=== PATIENT | female | born 1940 | race Caucasian/White ===

== ENCOUNTER 2016-10-23 05:15 | Emergency (ER) | payer OTHER ==
[~2016-10-23] VITALS: Ht 162.6 cm; Wt 79.5 kg
[~2016-10-23 05:15] MED LIST: ATEN-175 PO; ATV5 PO; FRS/40 PO; POTA-335 PO; SERT-234 PO
[2016-10-23 05:22] VITALS: TEMP 36.5; Ht 162.6 cm; Wt 79.5 kg
[2016-10-23] MEDS ORDERED: PHENAZOPYRIDINE HCL 200 MG TAB PO STA (05:35)
--- NOTE | 2016-10-23 05:37 | EMERGENCY ROOM VISIT NOTE ---
History Report prepared by Marysol: June Aguilar Under the Supervision of: Dr. Franny Perez D.O. First contact with patient: 05:27 Chief Complaint: URINARY SYMPTOMS Stated Complaint: BLADDER PAIN Nursing Triage Summary: pt c/o bladder pain that started yesterday then this morning at 0230 it woke her up. frequency and blood now History of Present Illness The patient is a 76 year old female who presents to the Emergency Room with complaints of persistent lower abdominal pain that began around 0230 this morning. She currently rates her discomfort as an 8/10 in severity. The patient states that she has had bladder infections in the past and notes that her symptoms today feel similar to previous bladder infections. She states that she initially noticed symptoms yesterday, but states that it went away. The patient states that this morning at 0230 she noticed severe pain, describing it as a pressure. She additionally associates hematuria and urinary frequency with her symptoms today. The patient denies any fever, nausea, or vomiting. She states that her last bladder infection was a few years ago. The patient denies any history of diabetes. Source of History: patient Onset: 0230 this morning Position: abdomen (lower) Symptom Intensity: 8/10 Quality: pressure Timing: other (persistent) Associated Symptoms: + urinary symptoms (hematuria and frequency), No fevers , No nausea, No vomiting Review of Systems See HPI for pertinent positives & negatives. A total of 10 systems reviewed and were otherwise negative. Past Medical & Surgical Medical Problems: (1) Hx-Hodgkin's Disease (2) Hyperlipidemia Nec/Nos (3) Hypertension Nos (4) Pure Hypercholesterolem (5) Urin Tract Infection Nos Family History FHx: cancer Social History Smoking Status: Never Smoker Alcohol Use: none Drug Use: none Marital Status: Occupation Status: retired Current/Historical Medications Scheduled Atenolol (Tenormin), 100 MG PO DAILY Furosemide (Lasix), 40 MG PO BID Lorazepam (Ativan *), 0.5 MG PO TID Phenazopyridine Hcl (Pyridium), 1 TAB PO TID Potassium Chloride (Micro-K Ext Rel), 20 MEQ PO BID Sertraline (Zoloft), 100 MG PO DAILY Sulfamethoxazole-Trimethoprim (Bactrim Ds 800MG/160MG), 1 TAB PO BID Allergies Coded Allergies: Amoxicillin (Verified Allergy, Intermediate, HIVES, 10/23/16) Codeine (Unverified Allergy, Intermediate, HIVES, 10/23/16) Iodine (Unverified Allergy, Intermediate, HIVES, 10/23/16) NSAIDs (Verified Adverse Reaction, Severe, TOLD NOT TO TAKE DUE TO HBP, ) Uncoded Allergies: IODINATEDGLYCER (Allergy, Intermediate, HIVES, 11/14/09) IV CONTRAST IODINE FOR X-RAY (Allergy, Intermediate, RAPID HEART RATE, 04/02) Physical Exam Vital Signs Date Time Temp Pulse Resp B/P Pulse Ox O2 Delivery O2 Flow Rate FiO2 10/23/16 06:49 69 18 155/84 98 Room Air 10/23/16 05:22 36.5 70 18 166/97 95 Room Air Physical Exam HEENT: Head - normocephalic and atraumatic Pupils are equal, round, and reactive to light. Extraocular eye muscles are intact, and sclera are anicteric. Nose - moist nasal mucosa without discharge. Mouth - moist buccal mucosa. Oropharynx is nonerythematous and there is no tonsillar exudate or edema noted. Neck: Supple; no JVD, nuchal rigidity, cervical lymphadenopathy. Heart: Regular rate and rhythm. There is a normal S1 and S2 with no murmurs, clicks, or gallops appreciated. Lungs: Clear to auscultation bilaterally with no wheezes, rales, or rhonchi. Abdomen: Reproducible pain in the suprapubic region. Soft, nondistended, with good bowel sounds. There are no palpable pulsatile masses or hepatosplenomegaly. There is no guarding, rigidity, or rebound noted. Extremities: No evidence of cyanosis, clubbing, or edema. There are easily palpable peripheral pulses. Skin: warm and dry with good turgor and no rashes. Medical Decision & Procedures Laboratory Results Test 10/23/16 05:40 Urine Color YELLOW Urine Appearance CLOUDY (CLEAR) Urine pH 6.0 (4.5-7.5) Urine Specific [place] 1.025 (1.000-1.030) Urine Protein 2+ (NEG) Urine Glucose (UA) NEG (NEG) Urine Ketones NEG (NEG) Urine Occult Blood 3+ (NEG) Urine Nitrite NEG (NEG) Urine Bilirubin NEG (NEG) Urine Urobilinogen NEG (NEG) Urine Leukocyte Esterase MODERATE (NEG) Urine RBC >30 /hpf (0-4) Urine WBC >30 /hpf (0-5) Urine Epithelial Cells 10-20 /lpf (0-5) Urine Renal Cells 5-10 /lpf (FEW) Urine Bacteria 1+ (NEG) Laboratory results per my review. Medications Administered Medications (Trade) Dose Ordered Sig/Damián Route Start Time Stop Time Status Last Admin Dose Admin Phenazopyridine HCl (Pyridium Tab) 200 mg NOW STAT PO 10/23/16 05:35 10/23/16 05:37 DC 10/23/16 05:48 200 MG Ceftriaxone Sodium (Rocephin Im) 997.5 mg STK-MED ONCE IM 10/23/16 06:27 10/23/16 06:29 DC 10/23/16 06:44 1,000 MG Procedure The patient was treated with Pyridium Tab 200 mg PO, Rocephin Inj 1 gm IV. ED Course 0532: Past medical records reviewed. The patient was evaluated in room B2. A complete history and physical exam was performed. A urine specimen was obtained. 0535: Ordered Pyridium Tab 200 mg PO. 0613: Ordered Rocephin Inj 1 gm IM. 0615: I reevaluated the patient and she is feeling better. I discussed the exam findings with her and I discussed the treatment plan. She verbalized complete understanding and agreement. She is ready to go home. Medical Decision The patient is a 76 year old female who presents to the ED with lower abdominal pain. Differential diagnosis includes hemorrhagic cystitis, kidney stone, UTI. Urine: Yellow cloudy urine 2+ protein, 3+ blood, moderate leukocyte esterase, Greater than 30 rbc, and greater than 30 wbc, 1+ bacteria This is a 76-year-old female patient presents to the emergency department with urinary symptoms and hematuria. The patient has a history of urinary tract infections. She was treated with Pyridium which did help with her symptoms here. She was given a gram of Rocephin here and will be treated with oral Bactrim. Initially , I had prescribed Cipro as the patient had been prescribed this in the past. However, the patient told me that she had to be taken off of the Cipro for some reason. The patient was told to return to the emergency department if she had any worsening symptoms. Impression Primary Impression: Hemorrhagic cystitis Scribe Attestation The scribe's documentation has been prepared under my direction and personally reviewed by me in its entirety. I confirm that the note above accurately reflects all work, treatment, procedures, and medical decision making performed by me. Departure Information Dispostion Home / Self-Care Prescriptions Sulfamethoxazole-Trimethoprim (Bactrim Ds 800MG/160MG) 1 Tab Tab 1 TAB PO BID, #20 TAB Prov: Franny Perez D.O. 10/23/16 Phenazopyridine Hcl (PYRIDIUM) 200 Mg Tab 1 TAB PO TID for 2 Days, #6 TAB Prov: Franny Perez D.O. 10/23/16 Referrals Ramiro Garcia M.D. (PCP) Forms HOME CARE DOCUMENTATION FORM, IMPORTANT VISIT INFORMATION Patient Instructions My [facility], UTI Additional Instructions Rest. Take plenty of clear liquids Pyridium - 1 tab. every 8 hours for next 2 days Bactrim - 1 tab. every 12 hours
[2016-10-23 05:50] LABS: MANUAL MICROSCOPIC REQUIRED? YES; URINE APPEARANCE CLOUDY (CLEAR); URINE COLOR YELLOW; URINE NITRITE NEG (NEG); URINE SPECIFIC GRAVITY 1.025 (1.000-1.030); UROBILINOGEN NEG (NEG)
[2016-10-23 05:56] LABS: REVIEW REQ? NO
[2016-10-23 05:57] LABS: URINE BILIRUBIN NEG (NEG)
[2016-10-23 05:59] LABS: URINE RBC >30 /hpf (0-4); URINE WBC >30 /hpf (0-5)
[2016-10-23 06:00] LABS: URINE BACTERIA 1+ (NEG)
[2016-10-23] MEDS ORDERED: CEFTRIAXONE SOD INJ 1 GM ADDVIAL IM STA (06:13)
[2016-10-23] MEDS ORDERED: CEFTRIAXONE SOD 350MG/ML 1 GM VIAL IM ONE (06:27)
[2016-10-23] MEDS ORDERED: PHEN-775 PO (06:39)
[2016-10-23] MEDS ORDERED: CIPR1TAB10 PO (06:41)
[2016-10-23] MEDS ORDERED: SULF800T23 PO (06:44)
[2016-10-23 06:49] VITALS: BP 155/84; PULSE 69; O2SAT 98
== END 2016-10-23 07:10 | disposition home or self-care (01) ==
LOC: C.EDB 05:16
DX: N30.91 Cystitis, unspecified with hematuria (principal); E78.00 Pure hypercholesterolemia, unspecified; I10 Essential (primary) hypertension; Z85.71 Personal history of Hodgkin lymphoma

== ENCOUNTER → 2017-02-14 | Outpatient (CLI) | payer OTHER | END | disposition home or self-care (01) | LOC: C.LABSPEC 12:23 | PROVIDERS: ATTEND Internal Medicine | DX: N39.0 Urinary tract infection, site not specified (principal) ==

== ENCOUNTER 2017-10-27 10:36 | Emergency (ER) | payer OTHER ==
[~2017-10-27] VITALS: Ht 162.6 cm; Wt 80.7 kg
[2017-10-27 10:46] VITALS: Ht 162.6 cm; Wt 80.7 kg
[2017-10-27 10:50] VITALS: O2SAT 99
[2017-10-27] MEDS ORDERED: ACETAMINOPHEN 500 MG TAB PO STA (11:32)
[2017-10-27] MEDS ORDERED: SODIUM CHLORIDE 0.9% 1000ML 1,000 ML IV STA (11:32)
[2017-10-27] MEDS ORDERED: ALBUT/IPRATROP 3MG/0.5MG NEB 3 ML VIAL INH STA (11:32)
--- NOTE | 2017-10-27 11:40 | EMERGENCY ROOM VISIT NOTE ---
History Report prepared by Marysol: Vincent Soni Under the Supervision of: Dr. Real Elizabeth M.D. First contact with patient: 11:27 Chief Complaint: COUGH Stated Complaint: COUGH Nursing Triage Summary: c/o non productive cough and increased weakness since tuesday. History of Present Illness The patient is a 77 year old female who presents to the Emergency Room with complaints of a persistent cough for the past four days. The patient states that her cough started out productive, though now it is a dry cough. She additionally states that she is weak, tired, she has no appetite, and she has a sore throat. The patient's family notes that the patient had a fever the other day. She denies any vomiting, diarrhea, congestion, and any history of COPD, emphysema, asthma, and heart problems. She has been around her grandson who has also been sick recently. The patient states that she has not gotten a flu shot this year. Source of History: patient Onset: four days ago Position: other (global) Quality: other (cough) Timing: other (persistent) Associated Symptoms: + fevers, + sorethroat, + weakness, No vomiting, No diarrhea Note: Associated symptoms: Lack of appetite. Review of Systems See HPI for pertinent positives & negatives. A total of 10 systems reviewed and were otherwise negative. Past Medical & Surgical Medical Problems: (1) Hx-Hodgkin's Disease (2) Hyperlipidemia Nec/Nos (3) Hypertension Nos (4) Pure Hypercholesterolem (5) Urin Tract Infection Nos Family History FHx: cancer Social History Smoking Status: Never Smoker Alcohol Use: none Drug Use: none Marital Status: Occupation Status: retired Current/Historical Medications Scheduled Albuterol Hfa (Ventolin Hfa), 3 PUFFS INH Q6H Atenolol (Tenormin), 100 MG PO DAILY Azithromycin (Zithromax Z-Shaan), 0 PO UD Furosemide (Lasix), 40 MG PO BID Lorazepam (Ativan), 0.5 MG PO TID Potassium Ext Rel (Klor-Con), 20 MEQ PO DAILY Allergies Coded Allergies: Amoxicillin (Verified Allergy, Intermediate, HIVES, 10/27/17) Codeine (Unverified Allergy, Intermediate, HIVES, 10/27/17) Iodine (Unverified Allergy, Intermediate, HIVES, 10/27/17) NSAIDs (Verified Adverse Reaction, Severe, TOLD NOT TO TAKE DUE TO HBP, ) Uncoded Allergies: IODINATEDGLYCER (Allergy, Intermediate, HIVES, 11/14/09) IV CONTRAST IODINE FOR X-RAY (Allergy, Intermediate, RAPID HEART RATE, 04/02) Physical Exam Vital Signs Date Time Temp Pulse Resp B/P (MAP) Pulse Ox O2 Delivery O2 Flow Rate FiO2 10/27/17 14:33 64 19 105/46 92 10/27/17 13:19 72 10/27/17 12:31 36.6 73 19 121/63 100 Room Air 2.0 10/27/17 12:03 66 20 121/63 100 Room Air 10/27/17 10:50 99 Nasal Cannula 2.0 10/27/17 10:47 67 10/27/17 10:46 36.6 67 22 121/63 100 Nasal Cannula 2.0 10/27/17 10:46 96 Nasal Cannula 2.0 Physical Exam GENERAL: Patient is in no acute distress. HEENT: No acute trauma, normocephalic atraumatic, mild throat erythema, mucous membranes moist, no nasal congestion, no scleral icterus. NECK: No stridor, no adenopathy, no meningismus, trachea is midline. LUNGS: Scattered wheezes. Breath sounds are equal. No respiratory distress. Dry cough noted. HEART: Without murmurs gallops or rubs, regular rate and rhythm. ABDOMEN: Soft, nontender, bowel sounds positive, no hernias, no peritonitis. EXTREMITIES: No cyanosis or edema, full range of motion of all the joints without pain or difficulty, no signs for acute trauma. NEUROLOGIC: Oriented x 3, no acute motor or sensory deficits, no focal weakness. SKIN: No rash, no jaundice, no diaphoresis. Medical Decision & Procedures ER Provider Diagnostic Interpretation: Radiology results as stated below per my review and radiologist interpretation: CHEST ONE VIEW PORTABLE HISTORY: Evaluate Fever/Sepsis COMPARISON: Chest 12/14/2013. FINDINGS: A calcified granuloma within the base of the right lower lobe. Mild diffuse interstitial thickening, unchanged. This is likely chronic. No new focal lung consolidations to suggest pneumonia. No evidence for pulmonary edema. The heart remains mildly enlarged. Right paratracheal soft tissue prominence is also stable. IMPRESSION: Stable cardiomegaly and chronic interstitial thickening. No new focal lung consolidations. Electronically signed by: Baldo Cowan M.D. 10/27/2017 1:22 PM Dictated Date/Time: 10/27/2017 1:19 PM Laboratory Results 10/27/17 11:50 Red Blood Count 4.14, Mean Corpuscular Volume 88.6, Mean Corpuscular Hemoglobin 30.9, Mean Corpuscular Hemoglobin Concent 34.9, Mean Platelet Volume 10.3, Neutrophils (%) (Auto) 76.9, Lymphocytes (%) (Auto) 11.2, Monocytes (%) (Auto) 11.2, Eosinophils (%) (Auto) 0.0, Basophils (%) (Auto) 0.3, Neutrophils # (Auto ) 9.77, Lymphocytes # (Auto) 1.42, Monocytes # (Auto) 1.42, Eosinophils # (Auto ) 0.00, Basophils # (Auto) 0.04 10/27/17 11:50 Test 10/27/17 11:50 10/27/17 11:52 White Blood Count 12.70 K/uL (4.8-10.8) Red Blood Count 4.14 M/uL (4.2-5.4) Hemoglobin 12.8 g/dL (12.0-16.0) Hematocrit 36.7 % (37-47) Mean Corpuscular Volume 88.6 fL (80-100) Mean Corpuscular Hemoglobin 30.9 pg (25-34) Mean Corpuscular Hemoglobin Concent 34.9 g/dl (32-36) Platelet Count 149 K/uL (130-400) Mean Platelet Volume 10.3 fL (7.4-10.4) Neutrophils (%) (Auto) 76.9 % Lymphocytes (%) (Auto) 11.2 % Monocytes (%) (Auto) 11.2 % Eosinophils (%) (Auto) 0.0 % Basophils (%) (Auto) 0.3 % Neutrophils # (Auto) 9.77 K/uL (1.4-6.5) Lymphocytes # (Auto) 1.42 K/uL (1.2-3.4) Monocytes # (Auto) 1.42 K/uL (0.11-0.59) Eosinophils # (Auto) 0.00 K/uL (0-0.5) Basophils # (Auto) 0.04 K/uL (0-0.2) RDW Standard Deviation 45.7 fL (36.4-46.3) RDW Coefficient of Variation 14.0 % (11.5-14.5) Immature Granulocyte % (Auto) 0.4 % Immature Granulocyte # (Auto) 0.05 K/uL (0.00-0.02) Anion Gap 10.0 mmol/L (3-11) Est Creatinine Clear Calc Drug Dose 37.8 ml/min Estimated GFR () 47.8 Estimated GFR (Non- 41.3 BUN/Creatinine Ratio 15.2 (10-20) Lactic Acid Level 1.7 mmol/L (0.4-2.0) Calcium Level 8.4 mg/dl (8.5-10.1) Magnesium Level 2.3 mg/dl (1.8-2.4) Total Bilirubin 1.8 mg/dl (0.2-1) Aspartate Amino Transf (AST/SGOT) 39 U/L (15-37) Alanine Aminotransferase (ALT/SGPT) 38 U/L (12-78) Alkaline Phosphatase 88 U/L (45-117) Total Protein 7.3 gm/dl (6.4-8.2) Albumin 3.4 gm/dl (3.4-5.0) Globulin 3.9 gm/dl (2.5-4.0) Albumin/Globulin Ratio 0.9 (0.9-2) Influenza Type A Antigen Neg for Influ A (NEG) Influenza Type B Antigen Neg for Influ B (NEG) Laboratory results reviewed by me. Medications Administered Medications (Trade) Dose Ordered Sig/Damián Route Start Time Stop Time Status Last Admin Dose Admin Acetaminophen (Tylenol Tab) 1,000 mg NOW STAT PO 10/27/17 11:32 10/27/17 11:37 DC 10/27/17 11:49 1,000 MG Sodium Chloride 1,000 ml @ 999 mls/hr Q1H1M STAT IV 10/27/17 11:32 10/27/17 12:32 DC 10/27/17 11:48 999 MLS/HR Albuterol/ Ipratropium (Duoneb) 3 ml NOW STAT INH 10/27/17 11:32 10/27/17 11:37 DC 10/27/17 11:48 3 ML Azithromycin (Zithromax Tab) 500 mg NOW STAT PO 10/27/17 13:55 10/27/17 13:57 DC 10/27/17 14:03 500 MG Albuterol (Ventolin Hfa Inhaler) 2 puffs NOW ONCE INH 10/27/17 14:00 10/27/17 14:01 DC 10/27/17 14:04 2 PUFFS ECG Indication: SOB/dyspnea, other (cough) Rate (beats per minute): 63 Rhythm: sinus rhythm Findings: 1st degree AV block, no ectopy, other (Non-specific T wave changes in the anterior and lateral leads) ED Course 1127: The patient was evaluated in room C7. A complete history and physical exam was performed. 1132: DuoNeb 3ml INH, Sodium Chloride 1000 ml @ 999 mls/hr IV, Tylenol Tab 1000mg PO 1342: Reevaluated the patient. Discussed results and discharge instructions: She verbalized understanding and agreement. The patient is ready for discharge. 1355: Azithromycin 500mg PO 1400: Albuterol 2 puffs INH Medical Decision Differential diagnoses considered include influenza, bronchitis, pneumonia, dehydration, electrolyte imbalance, anemia, and sepsis.. There is a mild leukocytosis, this could be consistent with infection or the stress of her situation. No concerning anemia. No significant electrolyte abnormality or kidney failure. There were a few very subtle liver enzyme elevations. Lactic acid level is not elevated making sepsis less likely. Blood cultures are pending. Influenza testing was negative. Chest film does not show pneumonia or CHF. EKG shows a sinus rhythm, no acute ischemic change, some nonspecific findings were seen. On exam, the patient was not hypoxic or toxic. She was not febrile. The patient was given IV saline, she received oral Tylenol and oral Zithromax. She received a DuoNeb and was given albuterol via MDI. I had a talk with the family and the patient. They do feel stable for discharge. The patient will follow with her doctor and has agreed to return here if worsening. At this point, the patient does appear to have a flulike illness/viral illness. Given the leukocytosis, given her age and past history. I do think antibiotics would be indicated for the possibility of bacterial superinfection. She is being discharged on Zithromax, albuterol, rest and hydration. Medication Reconcilliation Current Medication List: was personally reviewed by me Blood Pressure Screening Patient's blood pressure: Normal blood pressure Impression Primary Impression: Acute bronchitis Additional Impression: Cough Scribe Attestation The scribe's documentation has been prepared under my direction and personally reviewed by me in its entirety. I confirm that the note above accurately reflects all work, treatment, procedures, and medical decision making performed by me. Departure Information Dispostion Home / Self-Care Prescriptions Albuterol Hfa (VENTOLIN HFA) 200 Puffs/14726 Mcg Aers 3 PUFFS INH Q6H, #1 INHALER Prov: Real Elizabeth M.D. 10/27/17 Azithromycin (ZITHROMAX Z-SHAAN) 250 Mg Tab 0 PO UD, #1 PKT Prov: Real Elizabeth M.D. 10/27/17 Referrals Ramiro Garcia M.D. (PCP) Forms HOME CARE DOCUMENTATION FORM, IMPORTANT VISIT INFORMATION Patient Instructions My [facility] Additional Instructions zpac as directed fluids rest eat more frequently with smaller meals as discussed albuterol 3 puffs every 6 hours tylenol for pain and fever and aches see patricia zepeda for a recheck return for worsening symptoms as we discussed Problem Qualifiers
[2017-10-27] MEDS ORDERED: POTA20TA16 PO (12:14)
[2017-10-27] MEDS ORDERED: LORA-741 PO (12:14)
[2017-10-27 12:18] LABS: BASO % 0.3 %; BASO ABS # 0.04 K/uL (0-0.2); HEMATOCRIT 36.7 % (37-47); HEMOGLOBIN 12.8 g/dL (12.0-16.0); IG# 0.05 K/uL (0.00-0.02); LYMPH % 11.2 %; LYMPH ABS # 1.42 K/uL (1.2-3.4); MEAN CELL VOLUME 88.6 fL (80-100); MEAN CORPUSCULAR HEMOGLOBIN 30.9 pg (25-34); MEAN CORPUSCULAR HGB CONC 34.9 g/dl (32-36); MEAN PLATELET VOLUME 10.3 fL (7.4-10.4); MONO % 11.2 %; MONO ABS # 1.42 K/uL (0.11-0.59); NEUT % 76.9 %; NEUT ABS # 9.77 K/uL (1.4-6.5); PLATELET COUNT 149 K/uL (130-400); RED CELL DISTRIBUTION WIDTH SD 45.7 fL (36.4-46.3)
[2017-10-27 12:31] VITALS: TEMP 36.6
[2017-10-27 12:37] LABS: ALBUMIN 3.4 gm/dl (3.4-5.0); CALCIUM 8.4 mg/dl (8.5-10.1); CREATININE 1.24 mg/dl (0.60-1.20); POTASSIUM 3.1 mmol/L (3.5-5.1)
[2017-10-27 12:39] LABS: TOTAL PROTEIN 7.3 gm/dl (6.4-8.2)
[2017-10-27 12:47] LABS: INFLUENZA B ANTIGEN Neg for Influ B (NEG)
--- NOTE | 2017-10-27 13:23 | DIAGNOSTIC IMAGING REPORT ---
CHEST ONE VIEW PORTABLE HISTORY: Evaluate Fever/Sepsis COMPARISON: Chest 12/14/2013. FINDINGS: A calcified granuloma within the base of the right lower lobe. Mild diffuse interstitial thickening, unchanged. This is likely chronic. No new focal lung consolidations to suggest pneumonia. No evidence for pulmonary edema. The heart remains mildly enlarged. Right paratracheal soft tissue prominence is also stable. IMPRESSION: Stable cardiomegaly and chronic interstitial thickening. No new focal lung consolidations. Electronically signed by: Baldo Cowan M.D. 10/27/2017 1:22 PM Dictated Date/Time: 10/27/2017 1:19 PM
[2017-10-27] MEDS ORDERED: AZITHROMYCIN 250 MG TAB PO STA (13:55)
[2017-10-27] MEDS ORDERED: VNTHFA/IN INH (13:59)
[2017-10-27] MEDS ORDERED: AZITTAB PO (13:59)
[2017-10-27] MEDS ORDERED: ALBUTEROL HFA 8 GM INHALER INH ONE (14:00)
[2017-10-27 14:33] VITALS: BP 105/46; PULSE 64; O2SAT 92
== END 2017-10-27 14:34 | disposition home or self-care (01) ==
LOC: EDBD 10:36 → C.EDC 10:37
DX: J20.9 Acute bronchitis, unspecified (principal); I10 Essential (primary) hypertension; E78.5 Hyperlipidemia, unspecified; Z80.9 Family history of malignant neoplasm, unspecified

== ENCOUNTER 2017-11-16 21:29 | Emergency (ER) | payer OTHER ==
[~2017-11-16 21:29] MED LIST changes: -ATV5 PO; +LORA-741 PO; -POTA-335 PO; +POTA20TA16 PO; -SERT-234 PO; +VNTHFA/IN INH
--- NOTE | 2017-11-17 01:01 | EMERGENCY ROOM VISIT NOTE ---
History Report prepared by Marysol: Vincent Soni Under the Supervision of: Dr. Coleman Hernandez D.O. First contact with patient: 21:35 Chief Complaint: CARDIAC ARREST Stated Complaint: CARDIAC ARREST History of Present Illness The patient is a 77 year old female who presents to the Emergency Room with complaints of persistent cardiac arrest first found around 2029 tonight. Per the EMS, the patient was last known well at 1730 by her family before they went out of the house, and then they found her on the floor around 2029 when they came back. The patient was in the ED 2 weeks ago with bronchitis, and she does not have any cardiac history. The patient was given 5 rounds of epinephrin prior to arrival, and the last one was about 5 minutes ago. History was limited secondary to cardiac arrest. Source of History: EMS History Limited By: cardiac arrest Onset: 2029 Position: other (heart) Quality: other (cardiac arrest) Timing: other (persistent) Review of Systems See HPI for pertinent positives & negatives. Unable to obtain complete ROS secondary to patient being unresponsive Past Medical & Surgical Medical Problems: (1) Hx-Hodgkin's Disease (2) Hyperlipidemia Nec/Nos (3) Hypertension Nos (4) Pure Hypercholesterolem (5) Urin Tract Infection Nos Family History FHx: cancer Social History Smoking Status: Never Smoker Alcohol Use: none Drug Use: none Marital Status: Occupation Status: retired Current/Historical Medications Scheduled Albuterol Hfa (Ventolin Hfa), 3 PUFFS INH Q6H Atenolol (Tenormin), 100 MG PO DAILY Furosemide (Lasix), 40 MG PO BID Lorazepam (Ativan), 0.5 MG PO TID Potassium Ext Rel (Klor-Con), 20 MEQ PO DAILY Allergies Coded Allergies: Amoxicillin (Verified Allergy, Intermediate, HIVES, 10/27/17) Codeine (Unverified Allergy, Intermediate, HIVES, 10/27/17) Iodine (Unverified Allergy, Intermediate, HIVES, 10/27/17) NSAIDs (Verified Adverse Reaction, Severe, TOLD NOT TO TAKE DUE TO HBP, ) Uncoded Allergies: IODINATEDGLYCER (Allergy, Intermediate, HIVES, 11/14/09) IV CONTRAST IODINE FOR X-RAY (Allergy, Intermediate, RAPID HEART RATE, 04/02) Physical Exam Vital Signs Asystole Physical Exam GENERAL: Unresponsive with ET tube in place. No response to painful stimuli. EYE EXAM: Pupils are fixed and dilated. OROPHARYNX: ET tube in place. NECK: no carotid pulses LUNGS: Breath sounds are coarse and diminished on the left. HEART: No cardiac sounds. ABDOMEN: positive bowel sounds. SKIN: Extremities are cool and mottled UPPER EXTREMITIES: upper extremities are grossly normal. LOWER EXTREMITIES: No pitting edema. NEURO EXAM: GCS 3T. Unresponsive to painful stimuli. Pupils are fixed and dilated. No movements. Limited cardiac ultrasound. No pericardial effusion. No cardiac motion. Medical Decision & Procedures Procedure CPR was performed under my direction for 10 minutes. ED Course ED COURSE: Vital signs were reviewed and showed asystolic The patients medical record was reviewed The above diagnostic studies were performed and reviewed. ED treatments and interventions as stated above. 2123: The patient was evaluated in room B1. A complete history and physical examination was performed. 2133: The patient's time of 2136: I updated the patient's family on the patient's case. Medical Decision Differential diagnosis: Etiologies such as cardiac ischemia, aortic dissection, pulmonary embolism, electrolyte abnormality, acidosis, tension pneumothorax, hypothermia, hypovolemia, intracranial event, as well as others were entertained. Patient is a 77-year-old female who was found down unresponsive at 8:30 PM tonight. She was found to be in cardiac arrest. CPR was started by family. EMS was called. EMS found her to be in asystole with intermittent PEA. CPR was started and patient was given 5 rounds of epinephrine. End-tidal 20. Transferred to the ER. Upon arrival to the ER patient is unresponsive with a GCS of 3T. Bedside ultrasound confirms no cardiac activity. Patient was given another dose of epinephrine. CPR was continued under my direction. Several minutes later repeated bedside cardiac ultrasound which showed no cardiac activity. Again patient was completely pulseless. At this time with CPR multiple rounds of epinephrine for over an hour with asystole on echo we elected to cease CPR and terminate resuscitative efforts. Medication Reconcilliation Current Medication List: was not reviewed Impression Primary Impression: Cardiac arrest Critical Care I have personally spent 35 minutes of critical care time in the direct management of this patient. This includes bedside care, interpretation of diagnostic studies, and testing, discussion with consultants, patient, and family members, and other required patient management activities. This 35 minutes is in excess of all separately billable procedures. Scribe Attestation The scribe's documentation has been prepared under my direction and personally reviewed by me in its entirety. I confirm that the note above accurately reflects all work, treatment, procedures, and medical decision making performed by me. Departure Information Dispostion Referrals Ramiro Garcia M.D. (PCP) Patient Instructions My [facility]
== END 2017-11-16 22:45 | disposition expired ==
LOC: EDBD 21:29 → C.EDB 21:31 → C.EDA 22:45
DX: I46.9 Cardiac arrest, cause unspecified (principal); Z85.71 Personal history of Hodgkin lymphoma; E78.5 Hyperlipidemia, unspecified; I10 Essential (primary) hypertension; E78.00 Pure hypercholesterolemia, unspecified; Z87.440 Personal history of urinary (tract) infections; Z80.9 Family history of malignant neoplasm, unspecified; Z79.899 Other long term (current) drug therapy; Z88.1 Allergy status to other antibiotic agents; Z91.041 Radiographic dye allergy status; Z88.5 Allergy status to narcotic agent; Z88.8 Allergy status to other drugs, medicaments and biological substances